=== PATIENT | female | born 1985 | race Caucasian/White ===

== ENCOUNTER 2022-04-26 09:09 | Outpatient (CLI) | payer OTHER, SELFPAY | END 2022-04-26 09:10 | disposition home or self-care (01) | PROVIDERS: PCP Family Medicine; Visit Provider Family Medicine | DX: Z00.00 Encounter for general adult medical examination without abnormal findings (principal); E03.9 Hypothyroidism, unspecified; F41.1 Generalized anxiety disorder; Z12.4 Encounter for screening for malignant neoplasm of cervix | CPT/HCPCS: 87624; 88175 ==

== ENCOUNTER 2023-04-27 07:30 | Outpatient (CLI) | payer OTHER, SELFPAY | END 2023-04-27 07:31 | disposition home or self-care (01) | LOC: NFLDREF 11:58 | PROVIDERS: PCP Family Medicine; Referring Provider Family Medicine; Visit Provider Family Medicine | DX: Z13.6 Encounter for screening for cardiovascular disorders (principal); Z13.1 Encounter for screening for diabetes mellitus | CPT/HCPCS: 80061; 82947 ==

== ENCOUNTER 2024-05-16 08:03 | Outpatient (CLI) | payer OTHER, SELFPAY | END 2024-05-16 08:04 | disposition home or self-care (01) | LOC: NFLDREF 05-19 09:23 | PROVIDERS: PCP Family Medicine; Referring Provider Family Medicine; Visit Provider Family Medicine | DX: E03.9 Hypothyroidism, unspecified (principal); E78.5 Hyperlipidemia, unspecified; R03.0 Elevated blood-pressure reading, without diagnosis of hypertension; F41.1 Generalized anxiety disorder | CPT/HCPCS: 80053; 80061; 84443 ==

== ENCOUNTER 2025-06-05 07:33 | Outpatient (CLI) | payer OTHER, SELFPAY | END 2025-06-05 07:34 | disposition home or self-care (01) | LOC: NFLDREF 06-09 17:27 | PROVIDERS: PCP Family Medicine; Referring Provider Family Medicine; Visit Provider Family Medicine | DX: E03.9 Hypothyroidism, unspecified (principal) | CPT/HCPCS: 80053; 80061; 84443 ==